=== PATIENT | female | born 1955 | race Caucasian/White ===

== ENCOUNTER → 2016-07-17 | Outpatient (CLI) | payer OTHER ==
--- NOTE | 2016-07-17 14:05 | MM ---
Reason for exam: follow-up at short interval from prior study. Last mammogram was performed 7 months ago. History: Patient is postmenopausal. Family history of breast cancer in 2 aunts at age 50. Benign MG stereo VAD BX LT of the left breast, December 05, 2014. Cancelled Right Mammotome of the right breast, February 12, 2007. Took hormonal contraceptives for 2 years beginning at age 18. Took estrogen for 4 years 1 month beginning at age 38. Physical Findings: Nurse did not find any significant physical abnormalities on exam. MG 3D Diag Mammo W/Cad RT CC and MLO view(s) were taken of the right breast. Prior study comparison: December 17, 2015, bilateral MG 3d screening mammo w/cad. June 18, 2015, left breast MG 3d diag mammo w/cad LT. The breast tissue is heterogeneously dense. This may lower the sensitivity of mammography. There is chronic nodularity in the right breast is stable. ASSESSMENT: Benign, BI-RAD 2 RECOMMENDATION: Return to routine screening mammogram schedule for both breasts. Back on schedule.
== END | disposition home or self-care (01) ==
LOC: RADMAMWWP 12:24
PROVIDERS: ATTEND Family Medicine
DX: N63 Unspecified lump in breast (principal)
CPT/HCPCS: G0206; G0279

== ENCOUNTER → 2017-02-11 | Outpatient (CLI) | payer OTHER ==
--- NOTE | 2017-02-11 15:45 | US ---
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 Pt states right side neck swelling, previous thyroid issues years ago GLAND SIZE: Right Lobe: 5.0 x 1.3 x 1.6 cm Overall Parenchyma: Slightly heterogeneous Left Lobe: 4.3 x 1.1 x 1.2 cm Overall Parenchyma: Slightly heterogeneous Isthmus Thickness: 0.4 cm NODULES RIGHT: # of nodules measured on right: 1 1. 0.6 X 0.5 x 0.5 cm hypoechoic mixed nodule at the lower pole with well-defined margins; This nod ule is wider than tall and shows no intranodular vascularity. Prior size: No prior, Nodule appeared separate from thyroid ?parathyroid LEFT: # of nodules measured on left: 1 1. Nodule seen that may be posterior to the left thyroid lobe or located within the posterior aspect of the thyroid gland 0.99 X 0.91 x 0.82 cm isoechoic solid nodule at the mid pole with well-defined margins; This nodule is wider than tall and shows intranodular vascularity. Prior size: No prior Bilateral neck scanned, no evidence of lymphadenopathy. Nodules bilaterally, at area of pt's swelling and pulsatility shows a tortuous right carotid artery IMPRESSION: 1. Bilateral posterior nodules, measuring up to 1 cm on the left, that could represent posterior thyr oid nodules versus parathyroid nodules. Nuclear medicine parathyroid scan could be performed if clini mica indicated and should be correlated with serum laboratory values. 2. Mildly enlarged and slightly heterogenous thyroid gland.
== END | disposition home or self-care (01) ==
LOC: RADUSWWP 14:42
PROVIDERS: ATTEND Internal Medicine
DX: E04.2 Nontoxic multinodular goiter (principal)
CPT/HCPCS: 76536

== ENCOUNTER → 2017-02-11 | Outpatient (CLI) | payer OTHER ==
--- NOTE | 2017-02-12 10:35 | MM ---
Reason for exam: screening (asymptomatic). Last mammogram was performed 7 months ago. History: Patient is postmenopausal. Family history of breast cancer in 2 aunts at age 50. Benign MG stereo VAD BX LT of the left breast, December 05, 2014. Cancelled Right Mammotome of the right breast, February 12, 2007. Took hormonal contraceptives for 2 years beginning at age 18. Took estrogen for 4 years 1 month beginning at age 38. Physical Findings: A clinical breast exam by your physician is recommended on an annual basis and results should be correlated with mammographic findings. MG 3D Screening Mammo W/Cad Bilateral CC and MLO view(s) were taken. Prior study comparison: July 17, 2016, right breast MG 3d diag mammo w/cad RT. December 17, 2015, bilateral MG 3d screening mammo w/cad. October 26, 2014, mammogram, performed at [facility]. August 16, 2013, mammogram, performed at [facility]. The breast tissue is heterogeneously dense. This may lower the sensitivity of mammography. Previous mammotome biopsy within the left breast. No significant changes when compared with prior studies. ASSESSMENT: Negative, BI-RAD 1 RECOMMENDATION: Routine screening mammogram of both breasts in 1 year.
== END | disposition home or self-care (01) ==
LOC: RADMAMWWP 14:47
PROVIDERS: ATTEND Internal Medicine
DX: Z12.31 Encounter for screening mammogram for malignant neoplasm of breast (principal)
CPT/HCPCS: 77063; G0202